=== PATIENT | male | born 1955 | race Caucasian/White ===

== ENCOUNTER 2018-03-29 15:33 | Emergency (ER) | payer OTHER ==
--- NOTE | 2018-03-29 16:21 | EDPHY ---
H & P Time Seen by Provider: 03/29/18 16:20 HPI/ROS: Chief complaint. Coughing up blood HPI. 62-year-old male visiting from [place] arriving 2 days ago. He is here for the [place] tri[place]. He was doing a practice swim today and developed difficulty breathing and dizziness. He was rescued by near by [employer]. He got to shore and was coughing bloody sputum. No chest pain. His dizziness lasted about 2 hr. He then went for a run to see how he might feel and coughed up a little more blood. No fever cough. No unusual leg symptoms. History of asthma. ROS Constitutional. no fever/chills, no weakness Eyes. no problems with vision ENT. no sore throat, no nasal drainage Cardiovascular. no chest pain Respiratory. Shortness of breath and coughing up blood Abdominal. no abdominal pain, no nausea/vomiting, no diarrhea . no problems urinating MS. no calf pain/swelling, no neck/back pain, no joint pain Skin. no rash Lymph. no swollen glands Neuro. no headache, no dizziness, no difficulty walking or with speech Past Medical/Surgical History: Asthma Social History: , nonsmoker, no alcohol Smoking Status: Never smoked Physical Exam: General Appearance: Alert well-developed male mild distress vital signs are stable Eyes: Pupils equal and round no pallor or injection. ENT, Mouth: Mucous membranes are moist. Respiratory: There are no retractions, lungs are clear to auscultation. Cardiovascular: Regular rate and rhythm. Gastrointestinal: Abdomen is soft and nontender, no masses, bowel sounds normal. Neurological: Awake and alert, sensory and motor exams grossly normal. Skin: Warm and dry, no rashes. Musculoskeletal: Neck is supple nontender. Extremities symmetrical, full range of motion. Psychiatric: Patient is oriented X 3, there is no agitation. Constitutional: Initial Vital Signs Temperature (C) 36.7 C 03/29/18 15:39 Heart Rate 88 03/29/18 15:39 Respiratory Rate 16 03/29/18 15:39 Blood Pressure 153/86 H 03/29/18 15:39 O2 Sat (%) 94 03/29/18 15:39 O2 Delivery Mode Room Air Allergies/Adverse Reactions: No Known Allergies Allergy (Unverified 03/29/18 15:39) Home Medications: Medication Instructions Recorded Albuterol 03/29/18 Claritin 03/29/18 Medical Decision Making - Diagnostics Imaging Results: Imaging Impressions Chest X-Ray 03/29/18 16:36 Impression: No evidence of acute cardiopulmonary abnormality. Chest x-ray reviewed by me is nonacute Procedures: IV normal saline ED Course/Re-evaluation: Re-evaluation at 5:40 p.m.. Patient is stable. He and I discussed imaging and lab results. We discussed treatment plan including criteria for return importance of follow-up and further evaluation. He expresses understanding and agreement Patient has had no further symptoms in the emergency department. He is conversational and speaking in full sentences. No chest pain or shortness of breath Differential Diagnosis: I considered bronchitis, pneumonia, pulmonary embolus. - Data Points Laboratory Results: Laboratory Results 03/29/18 17:00 03/29/18 17:00 03/29/18 03/29/18 03/29/18 17:00 17:00 17:00 WBC 10.33 10^3/uL H 10^3/uL (3.80-9.50) RBC 5.11 10^6/uL 10^6/uL (4.40-6.38) Hgb 16.9 g/dL g/dL (13.7-17.5) Hct 49.6 % % (40.0-51.0) MCV 97.1 fL fL (81.5-99.8) MCH 33.1 pg pg (27.9-34.1) MCHC 34.1 g/dL g/dL (32.4-36.7) RDW 12.9 % % (11.5-15.2) Plt Count 170 10^3/uL 10^3/uL (150-400) MPV 12.2 fL H fL (8.7-11.7) Neut % (Auto) 73.6 % % (39.3-74.2) Lymph % (Auto) 15.4 % % (15.0-45.0) [place] % (Auto) 8.2 % % (4.5-13.0) Eos % (Auto) 1.8 % % (0.6-7.6) Baso % (Auto) 0.5 % % (0.3-1.7) Nucleat RBC Rel Count 0.0 % % (0.0-0.2) Absolute Neuts (auto) 7.60 10^3/uL H 10^3/uL (1.70-6.50) Absolute Lymphs (auto) 1.59 10^3/uL 10^3/uL (1.00-3.00) Absolute Monos (auto) 0.85 10^3/uL H 10^3/uL (0.30-0.80) Absolute Eos (auto) 0.19 10^3/uL 10^3/uL (0.03-0.40) Absolute Basos (auto) 0.05 10^3/uL 10^3/uL (0.02-0.10) Absolute Nucleated RBC 0.00 10^3/uL 10^3/uL (0-0.01) Immature Gran % 0.5 % % (0.0-1.1) Immature Gran # 0.05 10^3/uL 10^3/uL (0.00-0.10) D-Dimer 0.38 ug/mLFEU ug/mLFEU (0.00-0.50) Sodium 141 mEq/L mEq/L (135-145) Potassium 4.4 mEq/L mEq/L (3.3-5.0) Chloride 107 mEq/L mEq/L (97-110) Carbon Dioxide 26 mEq/l mEq/l (22-31) Anion Gap 8 mEq/L mEq/L (8-16) BUN 23 mg/dL mg/dL (7-23) Creatinine 1.0 mg/dL mg/dL (0.7-1.3) Estimated GFR > 60 Glucose 83 mg/dL mg/dL (70-100) Calcium 9.9 mg/dL mg/dL (8.5-10.4) Departure - Departure Disposition: Home, Routine, Self-Care Clinical Impression: Hemoptysis Condition: Good Instructions: Hemoptysis (ED) Additional Instructions: Easy activity next 24 hr. If you feel up to participating in the [employer] 1 start easy. Return for chest discomfort, trouble breathing, further coughing up blood. Follow up with your regular physician upon return home to [place] Referrals: NONE *PRIMARY CARE P,. [Primary Care Provider] - As per Instructions
[2018-03-29] MEDS ORDERED: NS 1,000 ML IV ONE (16:36)
[2018-03-29 17:12] LABS: PLATELET COUNT 170 10^3/uL (150-400)
[2018-03-29 18:42] VITALS: BP 123/72
== END 2018-03-29 18:43 | disposition home or self-care (01) ==
DX: R04.2 Hemoptysis (principal); J45.909 Unspecified asthma, uncomplicated; E86.9 Volume depletion, unspecified